=== PATIENT | male | born 1955 | race Caucasian/White ===

== ENCOUNTER 2018-05-22 23:23 | Emergency (ER) | payer OTHER ==
[2018-05-22 23:32] VITALS: BP 139/96; PULSE 88; TEMP 98.5; BMI 30.2
--- NOTE | 2018-05-23 | PDOC ---
History of Present Illness - General Chief Complaint: Rash Stated Complaint: ALLERGIC REACTION Time Seen by Provider: 05/22/18 23:59 Past History - Past Medical History Allergies/Adverse Reactions: Allergies Allergy/AdvReac Type Severity Reaction Status Date / Time No Known Allergies Allergy Verified 05/22/18 23:32 - Suicide/Smoking/Psychosocial Hx Smoking History: Never smoked Have you smoked in the past 12 months: No Information on smoking cessation initiated: No Hx Alcohol Use: No Drug/Substance Use Hx: No *Physical Exam - Vital Signs Last Vital Signs Temp Pulse Resp BP Pulse Ox 98.5 F 88 18 139/96 97 05/22/18 23:26 05/22/18 23:26 05/22/18 23:26 05/22/18 23:26 05/22/18 23:26 *DC/Admit/Observation/Transfer - Referrals Referrals: Mario Stephens [Primary Care Provider] - - Patient Instructions - Post Discharge Activity
--- NOTE | 2018-05-23 00:27 | PDOC ---
Attending Attestation - Resident Resident Name: Wilber Ortiz - ED Attending Attestation I have performed the following: I have examined & evaluated the patient, The case was reviewed & discussed with the resident, I agree w/resident's findings & plan, Exceptions are as noted
--- NOTE | 2018-05-23 01:43 | PDOC ---
History of Present Illness - General Chief Complaint: Rash Stated Complaint: ALLERGIC REACTION Time Seen by Provider: 05/22/18 23:59 - History of Present Illness Initial Comments: 05/23/18 01:37 Chief complaint: Rash History of present illness: 63 years old past medical history significant for hypertension presents to the emergency department with 4 day history of urticarial rash to arms chest back and legs. Patient was seen by his primary care provider was started on steroids and then on permethrin cream. Rash waxes and wanes comes and goes and sometimes better sometimes [place] is no associated fever chills chest pain nausea vomiting diarrhea no travel no sick contacts. Past History - Past Medical History Allergies/Adverse Reactions: Allergies Allergy/AdvReac Type Severity Reaction Status Date / Time No Known Allergies Allergy Verified 05/22/18 23:32 - Suicide/Smoking/Psychosocial Hx Smoking History: Never smoked Have you smoked in the past 12 months: No Information on smoking cessation initiated: No Hx Alcohol Use: No Drug/Substance Use Hx: No Review of Systems - Review of Systems Comments:: 05/23/18 01:38 ROS: A complete review of 10 out of 10 review of systems is taken and is negative apart from what is previously mentioned below and in the HPI. *Physical Exam - Vital Signs Last Vital Signs Temp Pulse Resp BP Pulse Ox 98.5 F 88 18 139/96 97 05/22/18 23:26 05/22/18 23:26 05/22/18 23:26 05/22/18 23:26 05/22/18 23:26 - Physical Exam Comments: 05/23/18 01:39 Vitals: Triage Vital signs reviewed General Appearance: no acute distress, well nourished well developed, Head: Atraumatic, Cardiac: Regular rate and rhythym, no murmurs, no rubs, no gallops, Lungs: Clear to auscultation bilateral, good air movement bilaterally, Abdomen: Soft, non distended, normal bowel sounds, non tender to palpation Extremities: Full range of motion to all extremities, no cyanosis, clubbing, or edema Skin: Urticarial rash to arms chest and back Psych: normal mood, normal affect Medical Decision Making - Medical Decision Making 05/23/18 01:39 History and examination consistent with urticarial rash given waxing and waning of symptomatology rash does not appear consistent with scabies despite the fact that the patient was treated with permethrin cream At this point we will allow patient to finish his prednisone will add on Teressa and discontinue other creams. Patient provided with dermatology follow- up. He will follow up with his primary care provider next week Findings, the need for follow-up and strict return instructions discussed with patient. *DC/Admit/Observation/Transfer Diagnosis at time of Disposition: Urticaria - Discharge Dispostion Disposition: HOME Condition at time of disposition: Good Decision to Admit order: No - Referrals Referrals: Mario Stephens [Primary Care Provider] - Crystal Moody MD [Staff Physician] - Tapan Luna [Staff Physician] - Ruby Martines MD [Non Staff, Medical] - - Patient Instructions Printed Discharge Instructions: Urticaria (Alternative Therapy) Additional Instructions: Continue prednisone as prescribed. Take Teressa 60 mg twice a day for the next 14 days. Follow-up with one of the listed assistant professor of nursing next week. As well as with your primary care provider next week. Return to the emergency department for any concerns. Discontinue using the cream which made symptoms worse. - Post Discharge Activity
== END 2018-05-23 02:24 | disposition home or self-care (01) ==
LOC: JER 23:23
DX: L50.9 Urticaria, unspecified (principal); I10 Essential (primary) hypertension
CPT/HCPCS: 99282-25